=== PATIENT | female | born 1970 | race Caucasian/White ===

== ENCOUNTER 2016-10-08 08:57 | Emergency (ER) | payer OTHER ==
[~2016-10-08] VITALS: Ht 167.6 cm; Wt 81.0 kg
[2016-10-08 09:05] VITALS: BP 132/83; PULSE 74; RESP 18; O2SAT 97
--- NOTE | 2016-10-08 10:13 | ED.REPORT ---
HPI-General Illness Date of Service Oct 08, 2016 ED Provider: Tano Arevalo MD Viki is an otherwise healthy 46-year-old female presenting to emergency Department with a chief complaint of spider bite. Patient reports 2 lesions on her left forearm and she does not recall being bitten by a spider however she does believe she captured a hobo spider in her home yesterday. Patient reports the lesions began as 2 small bumps on her forearm 2 days ago. They were surrounded by erythema which has advanced over the last 2 days. Complains of heat, itching. Denies reduced function in her hands, fever, shaking chills, abdominal pain, vomiting, feeling ill. Nursing Notes Stated Complaint: SPIDER BITES ON LT ARM Chief Complaint: General Complaint Allergies: Coded Allergies: No Known Allergies (Unverified , 10/08/16) Scheduled Cephalexin (Cephalexin) 500 Mg Tablet 500 MG PO QID General Time Seen by MD: 09:28 Chief Complaint Other (spider bite) Past Medical History Past Medical History Denies Review of Systems Negative unless stated otherwise in history of present illness Physical Exam General: Well appearing, well developed, well nourished, no acute distress. Left forearm: One small papule on the ulnar and palmar aspect of the distal forearm, surrounded by erythema advancing proximal. No fluctuance or pointing abscess. No ulceration or puncture, skin is intact. Radial pulse 2+, full strength and range of motion at wrist, MCP, PIP and DIP joints. Sensation and brisk capillary refill are intact in the distal phalanges Head: Atraumatic, normocephalic. Eyes: No scleral icterus or injection. No discharge. Vision grossly intact. ENT: Voice clear, hearing grossly intact. Respiratory: No respiratory distress, no increased work of breathing. Speaks in complete sentences. Skin: Warm and dry. Neurological: Grossly nonfocal. Psychological: alert and oriented. Speech appropriate, linear and logical. Behavior appropriate. Vital Signs Vital Signs Date Time Temp Pulse Resp B/P Pulse Ox O2 Delivery O2 Flow Rate FiO2 10/08/16 11:46 57 16 115/68 100 Room Air 10/08/16 09:05 37.2 74 18 132/83 97 Room Air Slightly elevated blood pressure Re-Eval/Medical Decision Med Decision/Clinical Course Otherwise healthy 46 year old female presents with chief complaint spider bites first noticed as 2 small lesions on her forearm 2 days ago, erythema advancing proximal until presentation. Complains of heat and itching. Patient reports She almost better home but does not recall being bitten specifically. Denies history of MRSA. On physical examination there is an erythematous patch on the distal palmar and ulnar aspect of her forearm with a small papule, heat. Negligible tenderness. Neurovascularly intact distally. No indication of an abscess that would benefit from drainage. Vital signs are essentially normal. No indication of systemic illness or toxidrome resulting from envenomation. I discussed the case with Dr. Arevalo, who met with and examined the patient. We agree that a course of cephalexin is appropriate, no indication to cover for MRSA. She is stable and safe to be discharged home. Area of erythema is demarcated with a marker. Primary care follow-up referral is provided. Advised regarding primary care follow-up, provided emergency return precautions. Patient verbalized understanding of, and consent to, the plan. Discharge & Departure Primary Impression: Cellulitis Site of cellulitis: extremity Site of cellulitis of extremity: upper extremity Laterality: left Qualified Code: L03.114 - Cellulitis of left upper limb Disposition: Home Discharge Condition All VS Reviewed: Yes Condition: Stable Patient Instructions: Cellulitis (ED) Additional Instructions: Evaluation for a possible spider bite emergency department include interview and physical examination which suggests a you have cellulitis,an infection in your skin. While this may have been started by insect bite, there is no clear evidence of it at this time. We will treat this with cephalexin 5 mg, taken 4 times a day for the next 7 days. Please be sure to take every dose. I recommend [id number] Benadryl to help with the itching as this heals. [employer] that this may advance somewhat beyond the markings we made over the next day or 2. A small amount is not a problem however if it advances quickly it will need to be reevaluated. After provide you with a referral to primary care provider. Please contact them to arrange to be seen as soon as possible to be sure this is progressing as expected. Return to the emergency department for any new or worsening symptoms including increasing redness, swelling, pain, fever or feeling ill. Referrals: Trish Marley MD EDSupervising Provider for APC: Tano Arevalo MD Attending Statement I saw and evaluated the patient in conjunction with the PA. I agree with the plan and findings as documented above. In brief, 46-year-old female presenting to the ED for evaluation of some redness on her skin, initially concerning to her as she was worried that it was a spider bite.. Well appearing, no acute distress. Nonlabored respirations. Good peripheral perfusion. Exam seems consistent with cellulitis. Given above, plan discharge home w/ careful return precautions, course of antibiotics, and close outpatient follow up. Patient agreeable to plan as stated, no further questions. copies to: Trish Marley MD, William B MD Oct 08, 2016 10:13 Jesús Akbar PA-C Oct 08, 2016 11:24
[2016-10-08] MEDS ORDERED: CEPH500T PO (11:25)
[2016-10-08 11:46] VITALS: BP 115/68; PULSE 57; RESP 16; O2SAT 100
== END 2016-10-08 11:47 | disposition home or self-care (01) ==
LOC: SED 08:57
DX: L03.114 Cellulitis of left upper limb (principal); W57.XXXA Bitten or stung by nonvenomous insect and other nonvenomous arthropods, initial encounter; Y93.89 Activity, other specified; Y92.89 Other specified places as the place of occurrence of the external cause; Y99.8 Other external cause status

== ENCOUNTER 2016-10-12 17:11 | Emergency (ER) | payer OTHER ==
[~2016-10-12] VITALS: Ht 167.6 cm; Wt 81.8 kg
[~2016-10-12 17:11] MED LIST: CEPH500T PO
[2016-10-12 17:19] VITALS: BP 131/83; PULSE 64; RESP 16; O2SAT 98
--- NOTE | 2016-10-12 18:09 | ED.REPORT ---
HPI-Rash / Abscess Date of Service Oct 12, 2016 ED Provider: Rohith Lopez MD otherwise healthy 46-year-old IN the emergency department with chief complaint of a red rash. Patient was seen in this department several days ago for similar symptoms on her left forearm. Today notes a round, red area on her medial upper arm. She notices streaking towards her armpit. Denies feeling ill , fever, shaking chills, abdominal pain, vomiting, racing heart. She reports she is taking cephalexin for previously diagnosed cellulitis. Denies IV drug use, diabetes. Nursing Notes Stated Complaint: SPIDER BITE Chief Complaint: Skin Rash/Abscess Nursing Notes Reviewed: Yes Allergies: Coded Allergies: No Known Allergies (Unverified , 10/08/16) Scheduled Cephalexin (Cephalexin) 500 Mg Tablet 500 MG PO QID Clindamycin (Clindamycin) 300 Mg Capsule 300 MG PO QID Lactobacillus Acidophilus (Probiotic) 1 Each Capsule 1 EACH PO BID General Time Seen by MD: 18:08 Chief Complaint Red area Past Medical History Past Medical History Denies Smoking History Current Every Day Smoker Review of Systems Review of Systems Note: Negative unless stated otherwise in history of present illness Physical Exam General: Well appearing, well developed, well nourished, no acute distress. Right arm: 4 cm slightly raised red warm area on the medial upper arm with approximately 3 cm streak of lymphangitis proximal. Vascularly intact distal. Left arm: Slight redness at the distal palmar aspect of forearm Head: Atraumatic, normocephalic. Eyes: No scleral icterus or injection. No discharge. Vision grossly intact. ENT: Voice clear, hearing grossly intact. Respiratory: No respiratory distress, no increased work of breathing. Speaks in complete sentences. Skin: Warm and dry. Neurological: Grossly nonfocal. Psychological: alert and oriented. Speech appropriate, linear and logical. Behavior appropriate. Initial Vital Signs Vital Signs (First) Date Time Temp Pulse Resp B/P Pulse Ox O2 Delivery O2 Flow Rate FiO2 10/12/16 17:19 36.6 64 16 131/83 98 Room Air Normal Re-Eval/Medical Decision Med Decision/Clinical Course Otherwise healthy 46-year-old female presents to emergency department for a rash. Reports onset of a red, raised, itchy patch on her inner upper arm today. Associated with a red streak. Denies other symptoms. Previously seen in this department diagnosed with sinusitis on her left forearm, which is responding well to cephalexin. Patient denies any drug use Physical examination reveals a 4 cm, red, raised patch on the inner upper forearm with a 3 cm streak of lymphangitis proximal. Otherwise benign examination with normal vital signs. I discussed case with Dr. honey john, examined the patient. He recommends initiating broader spectrum antibiotics such as clindamycin and probiotics. Advised regarding primary care follow-up, provided emergency return precautions. Patient verbalized understanding of, and consent to, the plan. Discharge & Departure Impression: Primary Impression: Cellulitis Site of cellulitis: extremity Site of cellulitis of extremity: upper extremity Laterality: right Qualified Code: L03.113 - Cellulitis of right upper limb Disposition: Home Discharge Condition All VS Reviewed: Yes Condition: Stable Patient Instructions: Cellulitis (ED) Additional Instructions: Evaluation in the emergency department for a red spot in the arm including interview and physical examination. This is reassuring that this is unlikely because bite immediately dangerous condition, I think that you do have cellulitis. We will address this with an antibiotic, clindamycin, which has a broader spectrum of coverage than the last time we treated you. I will also write a prescription for a probiotic to be taken twice a day for the next 2 weeks to help prevent diarrhea. If you do develop severe diarrhea, contact your primary care provider or return to the emergency department. Contact the primary care provider that he will have been referred to previously , and arrange to be seen as soon as possible. Return to emergency department for any new or worsening symptoms including increasing redness, swelling, pain, fever, feeling ill. Referrals: NOPCP (PCP) Trish Marley MD EDSupervising Provider for APC: Rohith Lopez MD Attending Statement Attending attestation: I saw this patient in conjunction with Jesús Akbar PA-C. I agree with the workup, evaluation, treatment and disposition. Rohith Lopez MD copies to: Trish Marley MD, Beck O MD Oct 12, 2016 18:08 Jesús Akbar PA-C Oct 12, 2016 19:27
[2016-10-12 19:13] VITALS: BP 131/80; PULSE 73; RESP 20; O2SAT 96
[2016-10-12] MEDS ORDERED: CLIN-78 PO (19:29)
[2016-10-12] MEDS ORDERED: LACT1CAP65 PO (19:29)
== END 2016-10-12 19:50 | disposition home or self-care (01) ==
LOC: SED 17:11
DX: L03.113 Cellulitis of right upper limb (principal); F17.200 Nicotine dependence, unspecified, uncomplicated